=== PATIENT | female | born 1970 | race African-American/Black ===

== ENCOUNTER 2019-06-06 19:07 | Emergency (ER) | payer OTHER ==
[2019-06-06 19:29] VITALS: BP 136/98; PULSE 96; TEMP 97.8; BMI 31.8
[2019-06-06] MEDS ORDERED: predniSONE 20 MG TABLET (UD) PO ONE (19:29)
[2019-06-06] MEDS ORDERED: diphenhydrAMINE HCL 25 MG CAPSULE (FP) PO ONE ×2 (19:29→19:36)
[2019-06-06] MEDS ORDERED: predniSONE 20 MG TABLET (UD) ONE (19:37)
--- NOTE | 2019-06-06 19:39 | PDOC ---
Documentation entered by Ni Berumen SCRIBE, acting as scribe for Ottoniel Friedman MD. Ottoniel Friedman MD: This documentation has been prepared by the Ata peña Aiswarya, SCRIBE, under my direction and personally reviewed by me in its entirety. I confirm that the documentation accurately reflects all work, treatment, procedures, and medical decision making performed by me. Attending Attestation - Resident Resident Name: Pérez Braunnorma - [facility] HPI: 06/06/19 19:48 The patient is a 49 year old female, with a significant PMH of hypothyroidism, who presents to the emergency department for evaluation of an allergic reaction that occurred 1 hour ago. The patient states she had shrimp and mussels today for lunch when she started to develop hives to the face and the trunk accompanied with swelling of the upper lip, no relief with 25 mg Benadryl.Patient states she had no prior history of shellfish allergy. Denies tongue swelling. Denies chest pain, shortness of breath, headache and dizziness. PAST MEDICAL HISTORY: hypothyroidism PAST SURGICAL HISTORY: no significant history FAMILY HISTORY: no pertinent history SOCIAL HISTORY: Pt lives with family and is employed. MEDICATIONS: reviewed ALLERGIES: As per nursing notes ROS General: No fevers or chills, no weakness, no weight loss HEENT: +eye and lip swelling No sore throat,. No ear pain CardioVascular: No chest pain or shortness of breath Respiratory:No cough, or wheezing. Gastrointestinal: no nausea, vomiting, diarrhea or constipation, No rectal bleeding Genitourinary: No dysuria, hematuria, or frequency Musculoskeletal: No joint or muscle pain or swelling Neurologic: No headache, vertigo, dizziness or loss of consciousness Psychiatric: nor depression Skin: No rashes or easy bruising Endocrine: no increased thirst or abnormal weight change Allergic: no skin or latex allergy All other systems reviewed and normal - Physicial Exam PE: 06/06/19 19:49 General: Well-nourished well-developed individual, no acute distress HEENT: +Angioedema periorbital and upper lip. No angioedema to the oropharynx Throat: Normal, tonsils normal, no erythema or exudate Chest: Nontender to palpation Cardiac: S1-S2 normal, regular rate and rhythm, no murmurs rubs or gallops Respiratory: Lungs clear to auscultation bilateral Extremities: Warm, dry, no cyanosis, clubbing, or edema Skin: +hive to the face and trunk. Neuro: Alert and oriented x3, nonfocal exam, grossly intact, normal gait Psych: Normal mood and affect - Medical Decision Making 06/06/19 19:35 Assessment and plan: This is a 49-year-old female who comes in complaining of ALLERGIC reaction to shellfish. Patient said she was not ALLERGIC to shellfish prior. Patient said post eating some shrimp sheet and muscles she developed swelling of the face and hives. Patient took Benadryl prior to coming in and then came in for evaluation. Patient has a relatively mild ALLERGIC reaction there is no evidence of airway compromise or circulatory compromise. Patient given oral prednisone additional Benadryl and observed for improvement in her symptoms prior to discharged home on a Medrol Dosepak.
--- NOTE | 2019-06-06 19:40 | PDOC ---
History of Present Illness - General Chief Complaint: Allergic Reaction Stated Complaint: LIP SWELLING, HIVES Time Seen by Provider: 06/06/19 19:16 History Source: Patient - History of Present Illness Initial Comments: 06/06/19 19:33 Pt. is a 49y/o F with pmhx of hypothyroidism and recent knee surgery presents to the ED with 1hr of hives and itching after eating shellfish. She denies any prior shellfish allergy and only gets the same reaction with sulfur medications. She took 25mg of benadryl and had no improvement. She denies any SOB, wheezing, difficulty breathing, fevers or chills at this time. Past History - Past Medical History Allergies/Adverse Reactions: Allergies Allergy/AdvReac Type Severity Reaction Status Date / Time Sulfa (Sulfonamide Allergy Mild Rash Verified 06/06/19 19:09 Antibiotics) Home Medications: Ambulatory Orders Oxybutynin Chloride 10 mg PO DAILY 11/16/16 Ciprofloxacin HCl [Cipro] 500 mg PO BID 06/06/19 Levothyroxine [Synthroid -] 50 mcg PO DAILY 06/06/19 Methylprednisolone [Medrol Dose Hesham] 4 mg PO ASDIR #21 tablet 06/06/19 Naproxen/Esomeprazole Mag [Vimovo Dr 500-20 mg Tablet] 1 each PO 06/06/19 COPD: No Psychiatric Problems: Yes (h/o depression) Thyroid Disease: Yes (takes Synthroid) - Immunization History Td Vaccination: Yes Immunization Up to Date: Yes - Suicide/Smoking/Psychosocial Hx Smoking Status: Yes Smoking History: Current some day smoker Years of Tobacco Use: 10 Have you smoked in the past 12 months: Yes Number of Cigarettes Smoked Daily: 7 Cigars Per Day: 0 Information on smoking cessation initiated: Yes 'Breaking Loose' booklet given: 11/16/16 Hx Alcohol Use: No Drug/Substance Use Hx: No Substance Use Type: Alcohol Hx Substance Use Treatment: No Review of Systems - Review of Systems Constitutional: No: Chills, Fever HEENTM: No: Eye Pain, Blurred Vision, Throat Pain, Throat Swelling Respiratory: No: Cough, Shortness of Breath, Stridor, Wheezing Cardiac (ROS): No: Chest Pain, Irregular Heart Rate : No: Pain Musculoskeletal: Yes: Joint Pain (recent knee surgery on left knee). No: Back Pain Integumentary: Yes: See HPI Neurological: No: Headache, Numbness, Weakness Endocrine: Yes: Flushing All Other Systems: Reviewed and Negative *Physical Exam - Vital Signs Last Vital Signs Temp Pulse Resp BP Pulse Ox 97.8 F 96 H 18 136/98 98 06/06/19 19:07 06/06/19 19:07 06/06/19 19:07 06/06/19 19:07 06/06/19 19:07 - Physical Exam General Appearance: Yes: Nourished, Appropriately Dressed. No: Apparent Distress HEENT: positive: EOMI, STEVEN, Normal ENT Inspection, Normal Voice, Other (hives on the face extending down to the clavicle. Swollen upper lip.). negative: Scleral Icterus (R), Scleral Icterus (L) Neck: positive: Supple Respiratory/Chest: positive: Lungs Clear, Normal Breath Sounds. negative: Respiratory Distress, Accessory Muscle Use, Labored Respiration, Stridor, Wheezing Cardiovascular: positive: Regular Rhythm, Regular Rate, S1, S2. negative: Edema , JVD Extremity: positive: Normal Inspection, Normal Range of Motion Integumentary: positive: Dry, Warm, Hives (Hives all over the face,neck and down to her collarbone. Upper lip swollen. No swelling of the tongue. Voice is not muffled and no stridor present.), Other Neurologic: positive: Fully Oriented, Alert, Normal Mood/Affect, Normal Response Medical Decision Making - Medical Decision Making 06/06/19 19:30 49y/o F hx of hypothyroidism presenting with hives on her face, neck and upper chest.Not in respiratory distress. O2 sat on room air at 100%. 25mg po benadryl and 60 mg po prednisone ordered for patient will observe to see if resolution is achieved 06/06/19 19:46 06/06/19 20:25 Pt. reassessed. Flushing sensation is improved. Swelling in upper lip is resolved. Hives are less pronounced. 06/06/19 20:29 Pt. symptoms. improved. Sending home with a medrol dose pack. *DC/Admit/Observation/Transfer Diagnosis at time of Disposition: Allergic reaction Qualifiers: Encounter type: initial encounter Qualified Code(s): T78.40XA - Allergy, unspecified, initial encounter - Discharge Dispostion Disposition: HOME Condition at time of disposition: Good Decision to Admit order: No - Prescriptions Prescriptions: Methylprednisolone [Medrol Dose Hesham] 4 mg PO ASDIR #21 tablet - Referrals - Patient Instructions Printed Discharge Instructions: DI for Eye Allergic Reaction Additional Instructions: You were seen and treated for an allergic reaction. Medication (medrol) has been prescribed for at home use. Take medication as prescribed. Return to the ED if you hives and swelling return,you develop a fever or develop shortness of breath and wheezing. - Post Discharge Activity
== END 2019-06-06 20:45 | disposition home or self-care (01) ==
LOC: FER 19:07
DX: T78.40XA Allergy, unspecified, initial encounter (principal); E03.9 Hypothyroidism, unspecified
CPT/HCPCS: 99283-25

== ENCOUNTER 2020-10-15 09:11 | Day surgery (SDC) | payer OTHER ==
[2020-10-11 13:34] VITALS: BMI 31.3
[2020-10-15 10:06] VITALS: TEMP 98.2
[2020-10-15] MEDS ORDERED: PROPOFOL 20 ML ONE ×3 (10:54)
[2020-10-15 11:54] VITALS: BP 112/58; PULSE 66
== END 2020-10-15 12:07 | disposition home or self-care (01) ==
LOC: FASU-ENDO 09:11
PROVIDERS: ATTEND Internal Medicine Gastroenterology
PROC: 0DBN8ZX Excision of Sigmoid Colon, Via Natural or Artificial Opening Endoscopic, Diagnostic (ICD-10-PCS; principal; 2020-10-15 10:57)
DX: Z12.11 Encounter for screening for malignant neoplasm of colon (principal); D12.7 Benign neoplasm of rectosigmoid junction; K57.30 Diverticulosis of large intestine without perforation or abscess without bleeding
CPT/HCPCS: 88305-TC

== ENCOUNTER 2022-03-27 14:45 | Emergency (ER) | payer OTHER ==
[2022-03-27 15:17] VITALS: TEMP 97.9; BMI 32.8
[2022-03-27 16:51] LABS: BASO % 0.8 % (0-2.0); EOS % 2.9 % (0-4.5); HEMATOCRIT 37.2 % (32.4-45.2); HEMOGLOBIN 12.3 GM/dL (10.7-15.3); LYMPH % 34.3 % (8-40); MCH 30.2 pg (25.7-33.7); MCHC 33.2 g/dl (32.0-36.0); MEAN PLT VOLUME 8.2 fl (7.5-11.1); MONO % 6.8 % (3.8-10.2); NEUT % 55.2 % (42.8-82.8); PLATELET COUNT 216 10^3/uL (134-434); RBC 4.09 M/mm3 (3.60-5.2); RDW 14.6 % (11.6-15.6); WHITE BLOOD COUNT 6.5 K/mm3 (4.0-10.0)
[2022-03-27 16:57] LABS: INR 1.04 (0.83-1.09)
[2022-03-27 16:59] LABS: ACTIVATED PTT 30.4 SECONDS (25.2-36.5)
[2022-03-27 17:09] LABS: ALBUMIN 3.9 g/dl (3.4-5.0); BLOOD UREA NITROGEN 13.5 mg/dL (7-18)
[2022-03-27 17:12] LABS: CREATININE 0.8 mg/dL (0.55-1.3)
[2022-03-27 17:15] LABS: BILIRUBIN,TOTAL 0.2 mg/dL (0.2-1); TOT PROT 7.4 g/dl (6.4-8.2)
[2022-03-27] MEDS ORDERED: methylPREDNISolone NA SUCC 125 MG/2 ML VIAL IVPUSH ONE (18:32)
[2022-03-27] MEDS ORDERED: ALBUTEROL SO4 2.5/IPRATROPIUM 0.5 INH SOL 3 ML VIAL.NEB. NEB ONE ×2 (18:49→19:14)
[2022-03-27] MEDS ORDERED: methylPREDNISolone NA SUCC 125 MG/2 ML VIAL ONE (18:49)
[2022-03-27] MEDS: ALBUTEROL SO4 2.5/IPRATROPIUM 0.5 INH SOL 3 ML VIAL.NEB. NEB SCH ×2 (19:04→19:13)
[2022-03-27 20:25] VITALS: BP 122/76; PULSE 82
== END 2022-03-27 20:26 | disposition home or self-care (01) ==
LOC: JER 14:45
PROC: 3E0F7GC Introduction of Other Therapeutic Substance into Respiratory Tract, Via Natural or Artificial Opening (ICD-10-PCS; principal; 2022-03-27)
PROC: 3E033GC Introduction of Other Therapeutic Substance into Peripheral Vein, Percutaneous Approach (ICD-10-PCS; 2022-03-27)
DX: R06.02 Shortness of breath (principal)
CPT/HCPCS: 36415; 71275-TC; 80053; 84436; 84443; 84479; 84484; 84703; 85025; 85379; 85610; 85730; 87804; 93005; 93010; 99285-25; C9803-CS; Q9967; U0003; U0005

== ENCOUNTER 2022-06-23 11:04 | Day surgery (SDC) | payer OTHER ==
[2022-06-19 12:54] VITALS: BMI 32.5
[2022-06-23] MEDS ORDERED: LIDOCAINE HCL/PF 2% SDV 5ML VIAL ONE (12:06)
[2022-06-23 13:55] VITALS: TEMP 97
[2022-06-23 14:09] VITALS: BP 116/78; PULSE 67; RESP 16
== END 2022-06-23 13:30 | disposition home or self-care (01) ==
LOC: FASU-ENDO 11:04
PROVIDERS: ATTEND Internal Medicine Gastroenterology
PROC: 0DB68ZX Excision of Stomach, Via Natural or Artificial Opening Endoscopic, Diagnostic (ICD-10-PCS; 2022-06-23)
PROC: 0DB98ZX Excision of Duodenum, Via Natural or Artificial Opening Endoscopic, Diagnostic (ICD-10-PCS; principal; 2022-06-23 12:28)
DX: K29.50 Unspecified chronic gastritis without bleeding (principal); K31.89 Other diseases of stomach and duodenum; R12 Heartburn
CPT/HCPCS: 88305-TC; 88342-TC